=== PATIENT | male | born 1960 | race Caucasian/White ===

== ENCOUNTER → 2018-06-01 | Outpatient (CLI) | payer BC ==
--- NOTE | 2018-06-01 16:34 | RAD ---
Indication: Right posterior calf pain TECHNIQUE: Grayscale ultrasound images of the right posterior calf soft tissue COMPARISON: None FINDINGS: The interrogated posterior right calf soft tissue demonstrates no cystic or solid lesions. No fluid collection. Skin is normal in thickness. No edema. IMPRESSION: No acute findings. Electronically signed by: Binh Nelson DO (06/01/2018 4:31 PM) [facility]
== END | disposition home or self-care (01) ==
LOC: US 13:17
PROVIDERS: ATTEND Family Medicine
DX: M79.661 Pain in right lower leg (principal)
CPT/HCPCS: 76882